=== PATIENT | male | born 1955 | race American Indian/Alaskan Native ===

== ENCOUNTER 2019-06-06 06:19 | Day surgery (SDC) | payer MEDICARE ==
[2019-06-06] MEDS ORDERED: ASPIRIN EC 81 MG TAB PO ONE ×2 (06:49→06:53)
[2019-06-06 07:18] LABS: Basophils % (Auto) 0.3 % (0.0-1.8); Eosinophils # (Auto) 0.2 K/mm3 (0.0-0.4); Eosinophils % (Auto) 3.4 % (0.0-4.3); Hematocrit 29.7 % (35.5-45.6); Hemoglobin 9.4 gm/dl (11.8-15.2); Lymphocytes # (Auto) 1.7 K/mm3 (1.2-5.4); Lymphocytes % (Auto) 29.6 % (13.4-35.0); Mean Corpuscular HGB Conc 32 % (32-34); Mean Corpuscular Volume 74 fl (84-94); Monocytes # (Auto) 0.6 K/mm3 (0.0-0.8); Monocytes % (Auto) 10.5 % (0.0-7.3); Platelet Count 227 K/mm3 (140-440); Red Blood Count 4.04 M/mm3 (3.65-5.03); Red Cell Distribution Width 17.8 % (13.2-15.2)
[2019-06-06 07:28] LABS: INR 1.18 (0.87-1.13)
[2019-06-06 07:29] LABS: Partial Thromboplastin Time 29.8 Sec. (24.2-36.6)
[2019-06-06] MEDS ORDERED: CLOPIDOGREL 75 MG TAB PO ONE (07:30)
[2019-06-06] MEDS: SODIUM CHLORIDE 0.9% 500 ML 500 ML IV SCH ×2 (07:30→09:49)
[2019-06-06 07:31] LABS: BUN/Creatinine Ratio 19; Blood Urea Nitrogen 13 mg/dL (9-20); Calcium 9.1 mg/dL (8.4-10.2); Hemolysis Index 7
[2019-06-06] MEDS ORDERED: CLOPIDOGREL 75 MG TAB ONE (07:38)
[2019-06-06] MEDS ORDERED: HEPARIN/NS 5000 UNIT/500ML 1,000 ML IR ONE (08:31)
[2019-06-06] MEDS ORDERED: HEPARIN 10,000 UNITS/10 ML VIAL ONE (08:31)
[2019-06-06] MEDS ORDERED: VERAPAMIL 5 MG/2 ML INJ ONE (08:31)
[2019-06-06] MEDS: fentaNYL 100 MCG/2 ML INJ ONE ×3 (09:48→09:59)
[2019-06-06] MEDS: MIDAZOLAM 2 MG/2 ML INJ ONE ×3 (09:48→09:59)
[2019-06-06] MEDS: LIDOCAINE (2%) 20 MG/1 ML VIAL 20 ML MDV INFILTRATI ONE ×2 (09:49→09:57)
[2019-06-06] MEDS ORDERED: ATROPINE 0.1% (1 MG/10 ML) CARDIAC SYRINGE ONE (10:13)
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
--- NOTE | 2019-06-06 12:35 | Short Stay Summary ---
Short Stay Documentation Date of service: 06/06/19 - History H&P: obtained from office - Allergies and Medications Current Medications: Allergies ibuprofen [From Motrin] Allergy (Unverified 06/06/19 06:20) FLUID BUILD UP ON LEGS,ARMS Home Medications Medication Instructions Recorded Confirmed Last Taken Type Aspirin EC [Halfprin EC] 81 mg PO QDAY 06/06/19 06/06/19 06/06/19 07:03 History 81 mg AtorvaSTATin [Lipitor] 40 mg PO HS 06/06/19 06/06/19 06/04/19 History 40 mg Clopidogrel [Plavix] 75 mg PO DAILY 06/06/19 06/06/19 05/30/19 History 75 mg lisinopriL [Zestril TAB] 40 mg PO DAILY 06/06/19 06/06/19 06/04/19 History 40 mg Active Medications Sodium Chloride (Nacl 0.9% 500 Ml) 500 mls @ 50 mls/hr IV DIRECT NERISSA Stop: 06/06/19 16:59 Last Admin: 06/06/19 09:49 Dose: 50 mls/hr Documented by: - Brief post op/procedure progress note Date of procedure: 06/06/19 Pre-op diagnosis: abnormal stress test Post-op diagnosis: other (mild to mod CAD) Procedure: C - see dictated cath report Anesthesia: local Estimated blood loss: none Condition: stable - Disposition Condition at discharge: Good Disposition: [id number] TO HOME OR SELFCARE - Discharge Diagnoses (1) CAD (coronary artery disease) Status: Chronic (2) Coronary aneurysm Status: Chronic (3) PVD (peripheral vascular disease) Status: Chronic Short Stay Discharge Plan Activity: advance as tolerated Wound: open to air, keep clean and dry, per your surgeon's advice Follow up with: NHI ENGLAND MD [Staff Physician] - 7 Days YASMEEN MARQUIS MD [Primary Care Provider] - 7 Days Forms: CardCath PCI D/C Instructions
[2019-06-06 14:20] VITALS: BP 131/72
== END 2019-06-06 14:45 | disposition home or self-care (01) ==
LOC: CATHLABREC 06:19
PROVIDERS: ATTEND Internal Medicine
DX: R94.39 Abnormal result of other cardiovascular function study (principal); I42.9 Cardiomyopathy, unspecified; I25.10 Atherosclerotic heart disease of native coronary artery without angina pectoris; G47.30 Sleep apnea, unspecified; I25.41 Coronary artery aneurysm; E78.00 Pure hypercholesterolemia, unspecified; I10 Essential (primary) hypertension; E11.51 Type 2 diabetes mellitus with diabetic peripheral angiopathy without gangrene; I73.9 Peripheral vascular disease, unspecified; F17.210 Nicotine dependence, cigarettes, uncomplicated; Z79.82 Long term (current) use of aspirin; Z79.899 Other long term (current) drug therapy; Z98.41 Cataract extraction status, right eye; Z98.42 Cataract extraction status, left eye; Z85.118 Personal history of other malignant neoplasm of bronchus and lung; Z98.890 Other specified postprocedural states; Z79.01 Long term (current) use of anticoagulants; Z82.49 Family history of ischemic heart disease and other diseases of the circulatory system; Z88.8 Allergy status to other drugs, medicaments and biological substances
CPT/HCPCS: 36415; 80048; 85025; 85610; 85730; 93005; 93010; 93458; 99156; 99157; C1769; J1644; J2250; J3010; J7040; J0461; Q9967

== ENCOUNTER 2020-03-12 22:22 | Emergency (ER) | payer MEDICARE ==
[2020-03-12 22:39] VITALS: BP 166/64
== END 2020-03-13 01:27 | disposition left against medical advice (07) ==
LOC: ED 22:22
DX: R04.0 Epistaxis (principal); Z53.21 Procedure and treatment not carried out due to patient leaving prior to being seen by health care provider